=== PATIENT | female | born 2000 | race African-American/Black ===

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

== ENCOUNTER 2021-04-07 08:19 | Emergency (ER) | payer MEDICAID ==
[~2021-04-07] VITALS: Ht 160 cm; Wt 69.0 kg
[2021-04-07 08:28] VITALS: BP 111/68
[2021-04-07] MEDS ORDERED: LIDOCAINE HCL 1% 20ML VIAL (Pyxis) INJ INFIL ONE (09:15)
[2021-04-07] MEDS ORDERED: TETANUS, DIPHTHERIA, PERTUSSIS VAC/PF 0.5ML (>10YR OLD) IM ONE (09:15)
== END 2021-04-07 10:40 | disposition home or self-care (01) ==
LOC: ER 08:19
DX: S61.411A Laceration without foreign body of right hand, initial encounter (principal); F12.10 Cannabis abuse, uncomplicated; X99.0XXA Assault by sharp glass, initial encounter; Y93.89 Activity, other specified; Y92.89 Other specified places as the place of occurrence of the external cause; Y99.8 Other external cause status
CPT/HCPCS: 12001; 90471; 90715; 99283; J3490

== ENCOUNTER 2022-09-07 07:36 | Inpatient (IN) | payer MEDICAID ==
[~2022-09-07] VITALS: Ht 160 cm; Wt 86.2 kg
[2022-09-07] MEDS ORDERED: PENICILLIN G POTASSIUM 2.5 MMU in DEXTROSE 5% WATER 50 ML IV SCH (08:00)
[2022-09-07] MEDS ORDERED: METHYLERGONOVINE MALEATE 0.2 MG/ML IM PRN ×2 (08:00→10:00)
[2022-09-07] MEDS ORDERED: CARBOPROST TROMETHAMINE 250 MCG/ML AMPUL IM PRN (08:00)
[2022-09-07] MEDS ORDERED: LACTATED RINGERS 1,000 ML IV SCH ×2 (08:00→12:00)
[2022-09-07] MEDS ORDERED: BUTORPHANOL TARTRATE 2 MG/ML VIAL IV PRN (08:00)
[2022-09-07] MEDS ORDERED: LIDOCAINE HCL 1% 20ML VIAL (Pyxis) INJ INFIL SCH (08:00)
[2022-09-07] MEDS ORDERED: NALOXONE HCL 0.4 MG/ML 1ML VIAL IM PRN (08:00)
[2022-09-07] MEDS ORDERED: OXYTOCIN 30 UNITS/500ML NS PMX 500 ML IV SCH ×2 (08:00→10:00)
[2022-09-07] MEDS ORDERED: MISOPROSTOL 100MCG TABLET VG SCH (08:00)
[2022-09-07] MEDS ORDERED: PREN-55 PO (08:17)
[2022-09-07 08:46] LABS: BASOPHILS % 0.3 % (0.0-2.0); EOSINOPHILS % 0.4 % (0.0-5.0); HEMATOCRIT. 34.7 % (36.0-48.0); LYMPHOCYTES % 20.1 % (20.0-50.0); MEAN CORPUSCULAR HEMOGLOBIN 32.3 pg (28.0-32.0); MEAN CORPUSCULAR VOLUME 93.1 fL (81.0-99.0); MEAN PLATELET VOLUME 10.6 fl (7.4-10.4); NEUTROPHILS % 71.2 % (40.0-76.0); PLATELET 181 x1000/uL (130-400); RED BLOOD CELL COUNT 3.72 mill/uL (4.2-5.4); RED CELL DISTRIBUTION WIDTH 14.2 % (11.6-14.6)
[2022-09-07 08:53] LABS: INR 0.9; PARTIAL THROMBOPLASTIN TIME 28.2 sec (23.4-31.0)
[2022-09-07] MEDS ORDERED: PENICILLIN G POTASSIUM 5 MMU in DEXT 5% WATER 100 ML IV NR (09:00)
[2022-09-07] MEDS ORDERED: ACETAMINOPHEN WITH CODEINE 300/30MG TABLET PO PRN (10:00)
[2022-09-07] MEDS ORDERED: RHO(D) IMMUNE GLOBULIN 300 MCG/SYR IM PRN (10:00)
[2022-09-07] MEDS ORDERED: HEMORRHOIDAL SUPP PR PRN (10:00)
[2022-09-07] MEDS ORDERED: IBUPROFEN 400MG TABLET PO PRN (10:00)
[2022-09-07] MEDS ORDERED: LANOLIN OINT 7GM TUBE TOP PRN (10:00)
[2022-09-07] MEDS ORDERED: GLYCERIN/WITCH HAZEL LEAF MEDICATED PAD TOP PRN (10:00)
[2022-09-07] MEDS ORDERED: BENZOCAINE/LANOLIN/ALOE VERA SPRAY TOP PRN (10:00)
[2022-09-07] MEDS ORDERED: BISACODYL 10MG SUPP PR PRN (10:00)
[2022-09-07] MEDS ORDERED: DIPHENHYDRAMINE 25MG CAPSULE PO PRN (10:00)
[2022-09-07] MEDS ORDERED: IBUPROFEN 800MG TABLET PO PRN (10:00)
[2022-09-07 11:23] LABS: HEPATITIS B SURFACE ANTIGEN NEGATIVE
[2022-09-07 11:33] LABS: CLARITY URINE CLEAR (CLEAR); COLOR URINE RED (YELLOW); KETONES URINE 1+ (NEGATIVE); LEUKOCYTE ESTERASE URINE TRACE (NEGATIVE); NITRITE URINE NEGATIVE (NEGATIVE); OCCULT BLOOD URINE 3+ (NEGATIVE); PH URINE 6.5 (4.5-8.0); PROTEIN URINE 1+ (NEGATIVE); SPECIFIC GRAVITY URINE 1.005 (1.005-1.030)
[2022-09-07 12:06] LABS: *AMPHETAMINES SCREEN URINE NEGATIVE (NEGATIVE); *BARBITURATES SCREEN URINE NEGATIVE (NEGATIVE); *BENZODIAZEPINES SCREEN URINE NEGATIVE (NEGATIVE); *COCAINE SCREEN URINE NEGATIVE (NEGATIVE); METHADONE URINE SCREEN NEGATIVE (NEGATIVE); OPIATES URINE SCREEN NEGATIVE (NEGATIVE); PHENCYCLIDINE URINE SCREEN NEGATIVE (NEGATIVE)
[2022-09-07 12:15] VITALS: BP 117/74
[2022-09-07 12:32] LABS: CANNABINOID URINE SCREEN PRESUMTIVE POSITIVE (NEGATIVE)
[2022-09-07] MEDS ORDERED: NALOXONE HCL 0.4MG/ML VIAL IV PRN (17:45)
[2022-09-07 20:00] VITALS: BP 127/86
[2022-09-07] MEDS: MAGNESIUM/ALUMINUM HYDROXIDE/SIMETHICONE 30ML UDC PO SCH (21:24)
[2022-09-07] MEDS: DOCUSATE SODIUM 100MG CAPSULE PO SCH (21:24)
[2022-09-07] MEDS: SIMETHICONE 80MG TABLET CHEW PO SCH (21:25)
[2022-09-08 04:00] VITALS: BP 126/73
[2022-09-08 06:27] LABS: BASOPHILS % 0.2 % (0.0-2.0); EOSINOPHILS % 0.1 % (0.0-5.0); HEMATOCRIT. 34.3 % (36.0-48.0); HEMOGLOBIN. 11.9 g/dL (12.0-16.0); LYMPHOCYTES % 10.1 % (20.0-50.0); MEAN CORPUSCULAR VOLUME 92.8 fL (81.0-99.0); MEAN PLATELET VOLUME 9.9 fl (7.4-10.4); NEUTROPHILS % 83.6 % (40.0-76.0); PLATELET 174 x1000/uL (130-400); RED CELL DISTRIBUTION WIDTH 14.1 % (11.6-14.6)
[2022-09-08] MEDS: MAGNESIUM/ALUMINUM HYDROXIDE/SIMETHICONE 30ML UDC PO SCH ×5 (07:30→20:54)
[2022-09-08] MEDS: SIMETHICONE 80MG TABLET CHEW PO SCH ×4 (07:59→20:53)
[2022-09-08 08:15] VITALS: BP 118/83
[2022-09-08] MEDS: FERROUS SULFATE 325MG TABLET PO SCH ×3 (08:24→17:55)
[2022-09-08] MEDS: PRENATAL VIT/FE FUMARATE/FA TABLET PO SCH (08:24)
[2022-09-08 16:08] VITALS: BP 122/71
[2022-09-08 19:30] VITALS: BP 119/83
[2022-09-08] MEDS: DOCUSATE SODIUM 100MG CAPSULE PO SCH (20:53)
[2022-09-09 04:00] VITALS: BP 113/74
[2022-09-09] MEDS: FERROUS SULFATE 325MG TABLET PO SCH (07:30)
[2022-09-09] MEDS: SIMETHICONE 80MG TABLET CHEW PO SCH (08:00)
[2022-09-09] MEDS: PRENATAL VIT/FE FUMARATE/FA TABLET PO SCH (09:00)
[2022-09-09] MEDS: MAGNESIUM/ALUMINUM HYDROXIDE/SIMETHICONE 30ML UDC PO SCH (09:43)
== END 2022-09-09 12:00 | disposition home or self-care (01) | DRG 560 ==
LOC: 8 EST LDRP 07:36 → OBSVTOIN 07:36 → 8EST 12:15
PROVIDERS: ADMIT Obstetrics & Gynecology; ATTEND Obstetrics & Gynecology
PROC: 10E0XZZ Delivery of Products of Conception, External Approach (ICD-10-PCS; principal; 2022-09-07)
PROC: 0KQM0ZZ Repair Perineum Muscle, Open Approach (ICD-10-PCS; 2022-09-07)
DX: O70.1 Second degree perineal laceration during delivery (principal); Z37.0 Single live birth; Z20.822 Contact with and (suspected) exposure to COVID-19; Z3A.39 39 weeks gestation of pregnancy
CPT/HCPCS: 36415; 80305; 80349; 81003; 85025; 86592; 86703; 86762; 86850; 86900; 87340; 87426; J2540; J3490; J7060; J7120; J2590

== ENCOUNTER 2024-11-26 16:09 | Emergency (ER) | payer MEDICAID ==
[~2024-11-26] VITALS: Ht 165.1 cm; Wt 66.0 kg
[~2024-11-26 16:09] MED LIST: PREN-55 PO
[2024-11-26 16:11] VITALS: O2SAT 100
[2024-11-26] MEDS ORDERED: ACET-2708 MT (17:14)
[2024-11-26] MEDS ORDERED: AM250 MT (17:14)
[2024-11-26 17:28] VITALS: BP 123/80; PULSE 89; RESP 16; TEMP 37.1; O2SAT 100
== END 2024-11-26 17:29 | disposition home or self-care (01) ==
LOC: ER 16:09
DX: J03.90 Acute tonsillitis, unspecified (principal); F10.90 Alcohol use, unspecified, uncomplicated; Z79.899 Other long term (current) drug therapy; Y90.9 Presence of alcohol in blood, level not specified
CPT/HCPCS: 81025; 87070; 87430; 99283

== ENCOUNTER 2024-11-28 00:46 | Emergency (ER) | payer MEDICAID ==
[~2024-11-28] VITALS: Ht 160 cm; Wt 68.5 kg
[~2024-11-28 00:46] MED LIST changes: +ACET-2708 MT; +AM250 MT
[2024-11-28 00:51] VITALS: O2SAT 98
[2024-11-28] MEDS ORDERED: DEXAMETHASONE 1 MG/ML ORAL SYR PO ONE (01:15)
[2024-11-28] MEDS: ACETAMINOPHEN 325MG TABLET PO ONE (01:27)
[2024-11-28] MEDS: DEXAMETHASONE 10 MG/ML VIAL PO NR (01:28)
[2024-11-28] MEDS ORDERED: AMOX1TAB16 MT (01:30)
[2024-11-28] MEDS: KETOROLAC 30MG/ML VIAL IM ONE (01:30)
[2024-11-28 01:51] VITALS: BP 113/77; PULSE 100; RESP 20; TEMP 37.2; O2SAT 100
== END 2024-11-28 02:02 | disposition home or self-care (01) ==
LOC: ER 00:46
DX: J02.9 Acute pharyngitis, unspecified (principal)
CPT/HCPCS: 99283; 81025; 96372; J1885; J1100; J8540